=== PATIENT | male | born 1980 | race Two or more races ===

== ENCOUNTER → 2024-01-10 09:39 | Outpatient (BNVA) | payer BC, SELFPAY | PROVIDERS: PCP Family Medicine; Visit Provider Psychiatry & Neurology Psychiatry | DX: Z79.899 Other long term (current) drug therapy (principal) | CPT/HCPCS: 80053; 80061; 83036; 84443; 85025 ==

== ENCOUNTER → 2024-11-26 10:07 | Outpatient (BNVA) | payer BC, SELFPAY ==
[2024-01-15 15:11] VITALS: BP 132/89; BMI 37.4
== END ==
PROVIDERS: PCP Family Medicine; Visit Provider Family Medicine
DX: S50.12XA Contusion of left forearm, initial encounter (principal); S60.222A Contusion of left hand, initial encounter; M21.942 Unspecified acquired deformity of hand, left hand; X58.XXXA Exposure to other specified factors, initial encounter
CPT/HCPCS: 73090; 73130